=== PATIENT | female | born 1950 | race Caucasian/White ===

== ENCOUNTER 2016-10-25 13:20 | Emergency (ER) | payer OTHER ==
[~2016-10-25] VITALS: Ht 160 cm; Wt 65.9 kg
[~2016-10-25 13:20] MED LIST: B COMPLETE1 EACH PO; CALCIUM-MAGNES1 EA10 PO; CLONAZEPAM2 MG PO; DAILY MULTIPLE1 EACH PO; DITROPAN XL5 MG PO; FISH OIL 1,0001 EAC7 PO; FLONASE16 G1 BOTH NARES; FRESHKOTE15 ML BOTH EYES; GABAPENTIN300 MG PO; HYDROCODON-ACE1 EAC8 PO; IRON325 M1 PO; KLONOPIN2 MG PO; LIORESAL10 MG PO; LORTAB 5-325 M1 EACH PO; MECLIZINE HCL25 MG PO; MELOXICAM7.5 MG PO; MIRALAX255 GM PO; MOTRIN600 MG PO; RANITIDINE HCL150 MG PO; RESTASIS 01 DROP/0.4 BOTH EYES; SERTRALINE HCL100 MG PO; TIZANIDINE HCL2 M1 PO; VICOPROFEN1 TABLET PO; VITAMIN B12 100MCG PO; ZYRTEC10 M3 PO
[2016-10-25 14:15] LABS: HEMATOCRIT 36.3 % (36.0-46.0); MCH 30.7 PG (29.0-34.0); MCHC 33.6 G/DL (30.0-36.0); MCV 91.2 FL (83-99); MEAN PLAT.VOLUME 9.6 uM^3 (9.5-12.4); PLATELET COUNT 149 K/uL (156-360); RBC DIS.WIDTH-CV 12.7 % (11.8-14.6); RBC DIS.WIDTH-SD 42.2 % (39-53); RED BLOOD COUNT 3.98 M/uL (3.80-5.20); WHITE BLOOD COUNT 5.5 K/uL (4.1-10.2)
[2016-10-25 14:24] LABS: PROTHROMBIN TIME 10.4 (9.2-11.2); PTT 27.3 (25-32)
[2016-10-25 14:26] LABS: CHLORIDE 107 mEq/L (99-109); POTASSIUM 4.1 mEq/L (3.7-5.4); SODIUM 139 mEq/L (136-147)
[2016-10-25 14:28] LABS: GLUCOSE 88 mg/dL (70-99)
[2016-10-25 14:30] LABS: ANION GAP 7 MEQ/L (2-14)
[2016-10-25 14:32] LABS: GFR ESTIMATE (CALCULATED) > 59 mL/min/
[2016-10-25 14:33] LABS: UREA NITROGEN (BUN) 8 mg/dL (9-23)
[2016-10-25 14:39] LABS: TROP-I INTERPRETATION NEGATIVE; TROPONIN-I < 0.01 ng/mL (0.0-0.30)
[2016-10-25 15:02] LABS: ADD MIUA? YES; BILIRUBIN NEGATIVE; BLOOD SMALL; COLOR COLORLESS ((YELLOW)); GLUCOSE (STRIP) NEGATIVE; KETONES NEGATIVE; LEUKOCYTES NEGATIVE; NITRITE NEGATIVE; PROTEIN (STRIP) NEGATIVE; SPECIFIC GRAVITY 1.003 (1.000-1.030); UROBILINOGEN 0.2 MG/DL (0.2-1.0)
[2016-10-25 15:06] LABS: BACTERIA RARE /HPF; EPITHELIAL CELLS NONE SEEN /HPF; MUCUS NONE SEEN /LPF; RED BLOOD CELLS 0-5 /HPF (0-5); UCUL ADDED? NO; WHITE BLOOD CELLS 0-5 /HPF (0-5)
[2016-10-25 17:45] VITALS: BP 160/76
== END 2016-10-25 17:52 | disposition home or self-care (01) ==
LOC: EME 13:20
PROVIDERS: Emergency Medicine
DX: R55 Syncope and collapse (principal); E86.0 Dehydration
CPT/HCPCS: 70450; 71020; 80048; 81003; 84484; 85027; 85610; 85730; 93005; 99281; 99285

== ENCOUNTER 2016-12-05 10:51 | Day surgery (SDC) | payer OTHER ==
[~2016-12-05] VITALS: Ht 160 cm; Wt 59.9 kg
[~2016-12-05 10:51] MED LIST changes: +WELLBUTRIN SR150 MG PO; +WELLBUTRIN XL150 MG PO; +ZANAFLEX2 M1 PO
== END 2016-12-05 12:40 | disposition home or self-care (01) ==
LOC: PAIN 10:51
DX: M47.26 Other spondylosis with radiculopathy, lumbar region (principal); M53.3 Sacrococcygeal disorders, not elsewhere classified; M79.1 Myalgia; M43.02 Spondylolysis, cervical region; K21.9 Gastro-esophageal reflux disease without esophagitis; F41.8 Other specified anxiety disorders; M43.17 Spondylolisthesis, lumbosacral region; E03.9 Hypothyroidism, unspecified; Z79.891 Long term (current) use of opiate analgesic
CPT/HCPCS: J1100; J2250; J3010

== ENCOUNTER 2017-01-09 10:24 | Day surgery (SDC) | payer OTHER ==
[~2017-01-09] VITALS: Ht 160 cm; Wt 59.4 kg
== END 2017-01-09 12:05 | disposition home or self-care (01) ==
LOC: PAIN 10:24 → SDC 11:15 → PAIN 12:05
DX: M53.3 Sacrococcygeal disorders, not elsewhere classified (principal); M46.1 Sacroiliitis, not elsewhere classified; M47.26 Other spondylosis with radiculopathy, lumbar region; M79.1 Myalgia; M43.02 Spondylolysis, cervical region; K21.9 Gastro-esophageal reflux disease without esophagitis; G89.29 Other chronic pain; F41.8 Other specified anxiety disorders; Z79.891 Long term (current) use of opiate analgesic
CPT/HCPCS: J1030; J2250; J3010; S0020